=== PATIENT | female | born 1960 | race African-American/Black ===

== ENCOUNTER 2017-01-09 17:08 | Emergency (ER) | payer OTHER ==
[~2017-01-09] VITALS: Ht 172.7 cm; Wt 90.9 kg
[~2017-01-09 17:08] MED LIST: ALBU8HFA IH; BACL10TA PO; CHOL200018 PO; DABI150 PO; DSS100 PO; GABA600T PO; ISON100 PO; MELO-267 PO; METO10TA3 PO; RIVA10 PO; TRAM50TA4 PO; ZOLOFT PO
[2017-01-09 19:27] LABS: ANION GAP 7 mmol/L (8-16); CALCIUM, TOTAL 8.8 mg/dL (8.8-10.5); CARBON DIOXIDE 31 mmol/L (22-29); CHLORIDE 108 mmol/L (98-107); CREATININE 0.93 mg/dL (0.60-1.30); GLOMERULAR FILTR. RATE CALC > 60 mL/min (>60); POTASSIUM 3.2 mmol/L (3.5-5.1); SODIUM SERUM 146 mmol/L (136-145); UREA NITROGEN, BLOOD 14 mg/dL (7-18)
[2017-01-09 19:30] LABS: BASOPHILS % (AUTO) 1.2 % (0.0-2.0); EOSINOPHILS # (AUTO) 0.21 K/uL (0.00-0.70); EOSINOPHILS % (AUTO) 2.51 % (1.0-6.0); HEMATOCRIT 43.6 % (36-46); HEMOGLOBIN 14.7 g/dL (12.0-16.0); LYMPHOCYTES # (AUTO) 1.4 K/uL (1.0-4.8); LYMPHOCYTES % (AUTO) 17.4 % (22.0-44.0); MEAN CORPUSCULAR HEMOGLOBIN 29.1 pg (26.0-34.0); MEAN CORPUSCULAR HGB CONC 33.7 G/dL (31.0-37.0); MEAN CORPUSCULAR VOLUME 86 fL (80-100); MONOCYTES # (AUTO) 0.7 K/uL (0.1-1.0); MONOCYTES % (AUTO) 8.5 % (2.0-9.0); NEUTROPHILS # (AUTO) 5.8 K/uL (1.8-7.7); NEUTROPHILS % (AUTO) 70.4 % (40.0-70.0); PLATELET COUNT (AUTO) 216 K/uL (150-450); RED BLOOD CELL COUNT(AUTO) 5.05 MIL/uL (4.00-5.20); WHITE BLOOD COUNT (AUTO) 8.2 K/uL (4.5-11.0)
[2017-01-09 19:33] LABS: INR 1.2 (0.9-1.1); PROTHROMBIN TIME 12.7 SEC (9.4-11.6)
[2017-01-09 19:35] LABS: ALANINE AMINOTRANSFERASE 15 U/L (12-78); ALBUMIN 3.8 g/dL (3.4-5.0); ASPARTATE AMINOTRANSFERASE 6 U/L (15-37); BILIRUBIN,TOTAL 0.2 mg/dL (0.1-1.0); TOTAL PROTEIN, SERUM 7.2 g/dL (6.4-8.2)
[2017-01-09] MEDS ORDERED: SODIUM CHLORIDE 0.9% 1,000 ML IV ONE (20:48)
[2017-01-09 20:57] LABS: ERYTHROCYTE SEDIMENTATION RATE 4 MM/HR (0-20)
[2017-01-09] MEDS ORDERED: DiphenhydrAMINE HCL 50 MG/ML VIAL IVP ONE (21:00)
[2017-01-09] MEDS ORDERED: ONDANSETRON HCL 4 MG/2 ML VIAL IVP ONE (21:00)
[2017-01-09] MEDS ORDERED: POTASSIUM CHLORIDE 20 MEQ ER TABLET PO ONE (21:00)
[2017-01-09 22:49] VITALS: BP 111/81
== END 2017-01-09 23:06 | disposition home or self-care (01) ==
LOC: EMS 17:09
DX: G43.909 Migraine, unspecified, not intractable, without status migrainosus (principal); I25.10 Atherosclerotic heart disease of native coronary artery without angina pectoris; I25.2 Old myocardial infarction; J44.9 Chronic obstructive pulmonary disease, unspecified; F17.210 Nicotine dependence, cigarettes, uncomplicated; Z88.0 Allergy status to penicillin
CPT/HCPCS: 36415; 70450; 80053; 85025; 85610; 85651; 85730; 96361; 96374; 96375; 99285; 99406; J1200; J2405; J7030

== ENCOUNTER 2017-01-17 18:51 | Emergency (ER) | payer OTHER ==
[~2017-01-17] VITALS: Ht 172.7 cm; Wt 95.4 kg
[2017-01-17] MEDS ORDERED: METR500 PO (19:01)
[2017-01-17] MEDS ORDERED: SULF-168 PO (19:01)
[2017-01-17] MEDS ORDERED: MORPHINE SULFATE 4 MG/ML SYRINGE IVP ONE (19:45)
[2017-01-17] MEDS ORDERED: DIAZEPAM 5 MG/ML 2 ML SYRINGE IVP ONE (19:45)
[2017-01-17] MEDS ORDERED: KETOROLAC TROMETHAMINE 30 MG/ML VIAL IVP ONE (20:30)
[2017-01-17] MEDS ORDERED: SODIUM CHLORIDE 0.9% 1,000 ML IV ONE (21:00)
[2017-01-17 21:24] VITALS: BP 105/67
== END 2017-01-17 21:36 | disposition home or self-care (01) ==
LOC: EMS 18:54
DX: M54.41 Lumbago with sciatica, right side (principal); I25.10 Atherosclerotic heart disease of native coronary artery without angina pectoris; I25.2 Old myocardial infarction; J44.9 Chronic obstructive pulmonary disease, unspecified; F17.210 Nicotine dependence, cigarettes, uncomplicated; Z88.0 Allergy status to penicillin; Z88.1 Allergy status to other antibiotic agents
CPT/HCPCS: 96361; 96374; 96375; 99284; J1885 ×2; J2270; J7030

== ENCOUNTER 2017-03-08 19:11 | Emergency (ER) | payer OTHER ==
[~2017-03-08] VITALS: Ht 172.7 cm; Wt 90.5 kg
[~2017-03-08 19:11] MED LIST changes: -DABI150 PO; -ISON100 PO; -MELO-267 PO; -METO10TA3 PO; +METR500 PO; +SULF-168 PO; -TRAM50TA4 PO; -ZOLOFT PO
[2017-03-08] MEDS: MORPHINE SULFATE 4 MG/ML SYRINGE IVP ONE (19:47)
[2017-03-08] MEDS: ONDANSETRON HCL 4 MG/2 ML VIAL IVP ONE ×2 (19:48→20:58)
[2017-03-08 19:50] LABS: BASOPHILS % (AUTO) 0.2 % (0.0-2.0); EOSINOPHILS % (AUTO) 1.4 % (1.0-6.0); HEMATOCRIT 47.6 % (36-46); HEMOGLOBIN 15.6 g/dL (12.0-16.0); LYMPHOCYTES # (AUTO) 1.3 K/uL (1.0-4.8); LYMPHOCYTES % (AUTO) 9.6 % (22.0-44.0); MEAN CORPUSCULAR HEMOGLOBIN 28.9 pg (26.0-34.0); MEAN CORPUSCULAR HGB CONC 32.8 G/dL (31.0-37.0); MEAN CORPUSCULAR VOLUME 88 fL (80-100); MONOCYTES # (AUTO) 0.3 K/uL (0.1-1.0); MONOCYTES % (AUTO) 2.2 % (2.0-9.0); PLATELET COUNT (AUTO) 231 K/uL (150-450); RED CELL DISTRIBUTION WIDTH 13.5 % (11.5-14.5); WHITE BLOOD COUNT (AUTO) 13.9 K/uL (4.5-11.0)
[2017-03-08 19:52] LABS: NEUTROPHILS % (AUTO) 86.6 % (40.0-70.0)
[2017-03-08 20:01] LABS: INR 1.1 (0.9-1.1); PROTHROMBIN TIME 11.4 SEC (9.4-11.6)
[2017-03-08 20:04] LABS: ANION GAP 9 mmol/L (8-16); CALCIUM, TOTAL 9.1 mg/dL (8.8-10.5); CARBON DIOXIDE 26 mmol/L (22-29); CHLORIDE 107 mmol/L (98-107); CREATININE 1.03 mg/dL (0.60-1.30); GLOMERULAR FILTR. RATE CALC > 60 mL/min (>60); POTASSIUM 3.4 mmol/L (3.5-5.1); RBC MORPHOLOGY COMMENT NORMAL RBC MORPH; SODIUM SERUM 142 mmol/L (136-145); UREA NITROGEN, BLOOD 14 mg/dL (7-18)
[2017-03-08 20:07] LABS: ALANINE AMINOTRANSFERASE 18 U/L (12-78); ALBUMIN 4.1 g/dL (3.4-5.0); ASPARTATE AMINOTRANSFERASE 14 U/L (15-37); BILIRUBIN,TOTAL 0.3 mg/dL (0.1-1.0); TOTAL PROTEIN, SERUM 7.8 g/dL (6.4-8.2)
[2017-03-08] MEDS: SODIUM CHLORIDE 0.9% 500 ML IV ONE (20:53)
[2017-03-08] MEDS: BARIUM SULFATE 0.1% SUSPENSION 450 ML BOTTLE PO ONE (20:55)
[2017-03-08 21:27] LABS: APPEARANCE,URINE CLEAR (CLEAR); GLUCOSE, URINE (UA) NEGATIVE (NEGATIVE); KETONES,URINE TRACE mg/dL (NEGATIVE); LEUKOCYTE ESTERASE ,URINE TRACE (NEGATIVE); PROTEIN,URINE NEGATIVE (NEGATIVE)
[2017-03-08] MEDS ORDERED: SODIUM CHLORIDE 0.9% 100 ML ONE (21:46)
[2017-03-08] MEDS ORDERED: IOVERSOL 320 MG/ML 100 ML VIAL ONE (21:46)
[2017-03-08 22:11] LABS: OCCULT BLOOD,URINE TRACE (NEGATIVE)
[2017-03-08 22:12] LABS: ADD UA MICROSCOPIC YES; CALCIUM OXALATE CRYSTALS,UR Moderate /LPF (None Seen); SQUAMOUS EPITHELIAL CELL,UR Moderate /LPF (None Seen)
[2017-03-08 23:07] VITALS: BP 120/78
== END 2017-03-08 23:23 | disposition home or self-care (01) ==
LOC: EMS 19:13
DX: G89.29 Other chronic pain (principal); M54.9 Dorsalgia, unspecified; E27.9 Disorder of adrenal gland, unspecified; R10.9 Unspecified abdominal pain; R11.2 Nausea with vomiting, unspecified; F17.210 Nicotine dependence, cigarettes, uncomplicated; J44.9 Chronic obstructive pulmonary disease, unspecified; I25.2 Old myocardial infarction; G43.909 Migraine, unspecified, not intractable, without status migrainosus; M54.30 Sciatica, unspecified side; Z88.0 Allergy status to penicillin; Z88.1 Allergy status to other antibiotic agents; Z95.0 Presence of cardiac pacemaker
CPT/HCPCS: 36415; 74022; 74177; 76700; 80053; 80307; 81001; 83690; 84484; 85025; 85610; 85730; 93005; 96361; 96374; 96375; 96376; 99285; 99406; J2270; J2405; J7040; J7050; Q9967; Z7610

== ENCOUNTER 2017-09-18 17:40 | Emergency (ER) | payer OTHER ==
[~2017-09-18] VITALS: Ht 175.3 cm; Wt 95.5 kg
[~2017-09-18 17:40] MED LIST changes: -METR500 PO; -SULF-168 PO
[2017-09-18 21:39] VITALS: BP 119/77
[2017-09-18] MEDS ORDERED: ACETAMINOPHEN/CODEINE 300-30 MG TABLET PO ONE (22:00)
[2017-09-18 22:01] LABS: GLUCOSE, URINE (UA) NEGATIVE (NEGATIVE); KETONES,URINE NEGATIVE (NEGATIVE); LEUKOCYTE ESTERASE ,URINE SMALL (NEGATIVE); OCCULT BLOOD,URINE NEGATIVE (NEGATIVE); PH,URINE 5.5 (5.0-8.0); PROTEIN,URINE NEGATIVE (NEGATIVE)
[2017-09-18 22:11] LABS: APPEARANCE,URINE SLIGHTLY CLOUDY (CLEAR)
[2017-09-18 22:12] LABS: ADD UA MICROSCOPIC YES; RBC,URINE 0-2 /HPF (0-2); SQUAMOUS EPITHELIAL CELL,UR Moderate /LPF (None Seen)
== END 2017-09-18 22:43 | disposition home or self-care (01) ==
LOC: EMS 17:46
DX: J40 Bronchitis, not specified as acute or chronic (principal); M54.5 Low back pain; G89.29 Other chronic pain; I25.10 Atherosclerotic heart disease of native coronary artery without angina pectoris; J44.9 Chronic obstructive pulmonary disease, unspecified; I25.2 Old myocardial infarction; F17.210 Nicotine dependence, cigarettes, uncomplicated; Z88.0 Allergy status to penicillin; Z88.1 Allergy status to other antibiotic agents; Z95.0 Presence of cardiac pacemaker
CPT/HCPCS: 71020; 87086; 99285; 99406